=== PATIENT | male | born 1965 | race Hispanic/Latino ===

== ENCOUNTER 2018-10-02 20:32 | Emergency (ER) | payer MEDICARE, OTHER ==
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
[2018-10-03] MEDS ORDERED: TORADOL PO ONE (01:52)
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
[2018-10-03] MEDS ORDERED: TYLENOL PO ONE (01:53)
[2018-10-03] MEDS ORDERED: IBUPROFEN PO ONE ×2 (02:06→02:09)
[2018-10-03 02:57] VITALS: BP 123/78
== END 2018-10-03 02:57 | disposition home or self-care (01) ==
LOC: ED 20:32
DX: S83.92XA Sprain of unspecified site of left knee, initial encounter (principal); S83.91XA Sprain of unspecified site of right knee, initial encounter; M62.838 Other muscle spasm; M54.5 Low back pain; M54.2 Cervicalgia; V43.52XA Car driver injured in collision with other type car in traffic accident, initial encounter; Y93.89 Activity, other specified; Y92.488 Other paved roadways as the place of occurrence of the external cause; Y99.8 Other external cause status
CPT/HCPCS: 72040; 72100; 99283

== ENCOUNTER 2019-06-28 13:41 | Emergency (ER) | payer MEDICARE ==
--- NOTE | 2019-06-28 15:41 | Cat Scan Report ---
CT lumbar spine wo con INDICATION / CLINICAL INFORMATION: 54 years Male; low back pain w/ left sided weakness. TECHNIQUE: Axial CT images of the lumbar spine were obtained after administration of intrathecal contrast. Sagi ttal and coronal reformatted images were produced. All CT scans at this location are performed using CT dose reduction for ALARA by means of automated exposure control. COMPARISON: None available. FINDINGS: POST-SURGICAL CHANGES: None. ALIGNMENT: No significant abnormality. VERTEBRAE: No signs of fracture. Vertebral bodies are grossly normal in height throughout. Schmorl's node seen along the inferior endplate of L4. INTERVERTEBRAL DISCS: Mild narrowing seen at L4-5. Mild disc bulge seen at this level, as well as L5- S1. Mild facet hypertrophy seen at both levels. Overall, no significant canal stenosis. Mild to moderate foraminal narrowing bilaterally at L5-S1 with encroachment upon L5 nerves. No imping ement. PARASPINAL SOFT TISSUES: No significant abnormality. ADDITIONAL FINDINGS: Minimal atherosclerotic disease seen in the aorta and its branches. IMPRESSION: 1. Degenerative changes of the lumbar spine as described above. No single, dominant cause for patient 's symptomatology seen. Signer Name: Cecilio Bergman MD, III Signed: 06/28/2019 3:36 PM Workstation Name: [id number]
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
[2019-06-28 16:24] VITALS: BP 150/78
== END 2019-06-28 17:11 | disposition home or self-care (01) ==
LOC: ED 13:41
DX: S39.012A Strain of muscle, fascia and tendon of lower back, initial encounter (principal); Z90.49 Acquired absence of other specified parts of digestive tract; Z79.1 Long term (current) use of non-steroidal anti-inflammatories (NSAID); Z79.899 Other long term (current) drug therapy; V49.49XA Driver injured in collision with other motor vehicles in traffic accident, initial encounter; Y93.89 Activity, other specified; Y92.488 Other paved roadways as the place of occurrence of the external cause; Y99.8 Other external cause status
CPT/HCPCS: 72131

== ENCOUNTER 2019-07-08 06:32 | Emergency (ER) | payer MEDICARE ==
[2019-07-08 06:43] VITALS: BP 120/61
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
== END 2019-07-08 08:00 | disposition left against medical advice (07) ==
LOC: ED 06:32
DX: M25.511 Pain in right shoulder (principal); M54.9 Dorsalgia, unspecified
CPT/HCPCS: 99281